=== PATIENT | male | born 1940 ===

== ENCOUNTER 2018-09-21 07:52 | Outpatient (CLI) | payer OTHER | END 2018-09-21 08:02 | disposition home or self-care (01) | LOC: EKG 07:52 | DX: I10 Essential (primary) hypertension (principal) ==

== ENCOUNTER 2018-09-21 12:15 | Inpatient (IN) | payer OTHER ==
[~2018-09-21] VITALS: Ht 175.3 cm; Wt 95.3 kg
[2018-09-27] MEDS ORDERED: ADULT LOW DOSE81 M1 PO (10:17)
[2018-09-27] MEDS ORDERED: AVAPRO300 MG PO (10:17)
[2018-09-27] MEDS ORDERED: LOTREL 5-40 MG1 EACH PO (10:18)
== END 2018-09-29 11:53 | DRG 470 ==
LOC: EDUNIT# 12:15 → O/R 09-26 05:50 → SURG 09-26 05:50 → SURH 09-26 07:00 → SURG 09-26 11:20 → SURH 09-26 12:15 → SURG 09-28 16:01
PROVIDERS: ADMIT Orthopaedic Surgery
PROC: 0SRD0J9 Replacement of Left Knee Joint with Synthetic Substitute, Cemented, Open Approach (ICD-10-PCS; principal; 2018-09-26 07:00)
DX: M17.12 Unilateral primary osteoarthritis, left knee (principal); D62 Acute posthemorrhagic anemia; M85.462 Solitary bone cyst, left tibia and fibula; I12.9 Hypertensive chronic kidney disease with stage 1 through stage 4 chronic kidney disease, or unspecified chronic kidney disease; N18.3 Chronic kidney disease, stage 3 (moderate)

== ENCOUNTER 2018-09-30 22:23 | Inpatient (IN) | payer OTHER ==
[~2018-09-30] VITALS: Ht 175.3 cm; Wt 95.3 kg
[~2018-09-30 22:23] MED LIST: ADULT LOW DOSE81 M1 PO; AVAPRO300 MG PO; LOTREL 5-40 MG1 EACH PO
--- NOTE | 2018-09-30 22:37 | NUR ---
PTE SE RECIBE POR COLD SYMPTOMS TOS CONGESTION SANAL Y FIEBRE.
--- NOTE | 2018-09-30 23:47 | NUR ---
PACIENTE ALERTA Y ORIENTADO X3 Y CON BUEN PATRON RESPIRATORIO SE ABRE VENA EN BRAZO DERECHO PATENTE Y NOA DE EDEMA CON ANGIO #20 SE COLOCA A BAJAR UN 0.9NSS AT 80ML/HR Y SE ADMINISTRA ROCEPHIN 1G. SE DIONI MUESTRAS BAJO MEDIDAS ASEPTICAS CBC, BMP, UA Y ABG'S. SE EDITH TRANQUILO EN CAMA, CON BARANDAS ELEVADAS Y FRENOS COLOCADOS.
--- NOTE | 2018-10-01 07:24 | NUR ---
SE RECIBE PACIENTE ALERTA Y ORIENTADO EN CAMA CON BARRANDAS ELEVADA POR MOREIRA SEGURIDAD. PACIENTE CON VENOPUNCION PATENTE NOA DE EDEMA Y ERRITEMA CON .9 NSS BAJANDO A 80 ML/HR. PACIENTE CON VENTURY MASK AL 35%. PCIENTE EN ESPERA DE CONSULTA CON EL DR. WATSON. SE EDITH A PACIENTE EN CAMA BAJO OBSERVACION POR CAMBIOS EN MOREIRA CONDICION.
[2018-10-01] MEDS ORDERED: LANTUS SOL100 UNIT/1 (09:47)
[2018-10-01] MEDS ORDERED: HUMALOG100 UNIT/1 (09:47)
[2018-10-01] MEDS ORDERED: LOTREL 5-40 MG1 EACH (09:48)
[2018-10-01] MEDS ORDERED: AVAPRO300 MG (09:48)
[2018-10-01] MEDS ORDERED: INDAPAMIDE2.5 MG (09:49)
[2018-10-01] MEDS ORDERED: DITROPAN XL5 MG (09:49)
[2018-10-01] MEDS ORDERED: CARDURA XL4 MG (09:49)
[2018-10-01] MEDS ORDERED: ELIQUIS2.5 MG (09:50)
[2018-10-17] MEDS ORDERED: CARVEDILOL12.5 MG (22:39)
[2018-10-17] MEDS ORDERED: XARELTO15 MG (22:39)
== END 2018-10-17 15:17 | disposition designated cancer center or children's hospital (05) | DRG 190 ==
LOC: ER 22:23 → SURG 10-01 11:25 → ICU 10-04 03:03 → MEDI 10-13 17:43
PROVIDERS: ADMIT Internal Medicine Cardiovascular Disease
PROC: BW24ZZZ Computerized Tomography (CT Scan) of Chest and Abdomen (ICD-10-PCS; principal; 2018-10-01)
PROC: 3E0F7GC Introduction of Other Therapeutic Substance into Respiratory Tract, Via Natural or Artificial Opening (ICD-10-PCS; 2018-10-01)
PROC: 4A033R1 Measurement of Arterial Saturation, Peripheral, Percutaneous Approach (ICD-10-PCS; 2018-10-02)
PROC: B246ZZZ Ultrasonography of Right and Left Heart (ICD-10-PCS; 2018-10-05)
PROC: 0T9B70Z Drainage of Bladder with Drainage Device, Via Natural or Artificial Opening (ICD-10-PCS; 2018-10-05)
PROC: 30233N1 Transfusion of Nonautologous Red Blood Cells into Peripheral Vein, Percutaneous Approach (ICD-10-PCS; 2018-10-06)
PROC: 4A12X4Z Monitoring of Cardiac Electrical Activity, External Approach (ICD-10-PCS; 2018-10-15)
DX: J44.1 Chronic obstructive pulmonary disease with (acute) exacerbation (principal); J80 Acute respiratory distress syndrome; J16.8 Pneumonia due to other specified infectious organisms; D62 Acute posthemorrhagic anemia; B37.41 Candidal cystitis and urethritis; J21.8 Acute bronchiolitis due to other specified organisms; N17.9 Acute kidney failure, unspecified; N17.8 Other acute kidney failure; M17.12 Unilateral primary osteoarthritis, left knee; D63.1 Anemia in chronic kidney disease; E11.22 Type 2 diabetes mellitus with diabetic chronic kidney disease; E11.65 Type 2 diabetes mellitus with hyperglycemia; I12.9 Hypertensive chronic kidney disease with stage 1 through stage 4 chronic kidney disease, or unspecified chronic kidney disease; N18.3 Chronic kidney disease, stage 3 (moderate); Z79.4 Long term (current) use of insulin; Z96.652 Presence of left artificial knee joint; R50.82 Postprocedural fever; I48.2 Chronic atrial fibrillation; Z79.01 Long term (current) use of anticoagulants; I35.0 Nonrheumatic aortic (valve) stenosis; I16.0 Hypertensive urgency; F32.89 Other specified depressive episodes; F41.8 Other specified anxiety disorders; N28.1 Cyst of kidney, acquired

== ENCOUNTER 2018-10-17 22:28 | Inpatient (IN) | payer OTHER ==
[~2018-10-17] VITALS: Ht 172.7 cm; Wt 97.5 kg
[~2018-10-17 22:28] MED LIST changes: +AVAPRO300 MG; +CARDURA XL4 MG; +DITROPAN XL5 MG; +ELIQUIS2.5 MG; +HUMALOG100 UNIT/1; +INDAPAMIDE2.5 MG; +LANTUS SOL100 UNIT/1; +LOTREL 5-40 MG1 EACH
--- NOTE | 2018-10-17 22:35 | NUR ---
PTE SE RECIBE POR DIFICULDAD RESPIRATORIO REFIERE PARAMEDICO Y PTE.
[2018-10-17] MEDS ORDERED: XARELTO15 MG (22:39)
[2018-10-17] MEDS ORDERED: CARVEDILOL12.5 MG (22:39)
--- NOTE | 2018-10-18 01:00 | NUR ---
SE RECIBE PACIENTE EN LA UNIDAD DE DOLOR PECHO ALERTA Y ORIENTADO X3, SE COLOCA EN CAMA CON BARANDAS ELEVADAS Y CABEZERA A 45 GRADOS, SE CONECTA A MONITOR CARDIACO CON OXIMETRIA. SE COLOCA TRIDIL 50MG/250ML RUN 1 ML/HR Y VMASK AL 50%. SE ORIENTA A LOS FAMILIARES SOBRE TRATAMIENTO MEDICO Y NORMAS DE LA UNIDAD LOS MISMO REFIEREN ENTENDER. SE MANTIENE PACIENTE BAJO OBSERVACION CONTINUA.
--- NOTE | 2018-10-18 06:43 | NUR ---
PACIENTE RECIBE VISITA DE DR. WATSON, EL MISMO ORDENA D/C TRIDIL Y COLOCAR CANULA NASAL A 3 LITROS. SE EJECUTA ORDEN MEDICA. PACIENTE ESTABLE SE MANTIENE BAJO OBSERVACION.
--- NOTE | 2018-10-18 08:19 | NUR ---
SE RECIBE PTE DEL TURNO ANTERIOR EN CAMA CON BARANDAS ELEVADAS CON IVFS PATENTE HEP LOCK, CONECTADO A MONITOR CARDIACO, ALERTA. SE LE OBSERVAN AMBAS EXTREMIDADES SUPERIORES ,INFERIORES EDEMATOSA CANULA DE OXIGENO A 2LITS. SE MANTIENE EN OBSERVACION Y PENDIENTE A CONSULTA CON .
--- NOTE | 2018-10-18 15:14 | NUR ---
SE RECIBE PACIENTE ALERTA Y ORIENTADO EN CAMA CON BARRANDAS ELEVADAS POR MOREIRA SEGURIDAD. CONECTADO A MONITOR CARDIACO Y OXIMETRIA DE PULSO. PACIENTE CON VENOPUNCION PATENTE NOA DE EDEMA Y ERRITEMA. PACIENTE CON EDEMA EN EXTREMIDADES, PACIENTE CON EXTREMIDADES SUPERIORES SUPURANDO AGUA. PACIENTE CON CANULA NASAL A 3L/RODERICK. SE DIONI SIGNOS VITALES ESTABLES AL MOMENTO SE EDITH A APCIENTE EN CAMA BAJO OBSERVACION POR CAMBIOS EN MOREIRA CONDICION.
--- NOTE | 2018-10-18 16:21 | NUR ---
PACIENTE ALERTA Y ORIENTADO SE VERIFICAN ORDENEES MEDICAS, SE COLOCA VENTURY MASK AL 50% A PACIENTE. SE LE ASITE PARA QUE ORINEY SE BENNIE COMODIDAD A PACIENTE. SE EDITH PACIENTE EN CAMA BAJO OBSERVACION POR CAMBIOS EN MOREIRA CONDICION.
--- NOTE | 2018-10-18 18:18 | NUR ---
5:00PM PACIENTE ALERTA Y ORIENTADO SE ORIENTA SOBRE TRATAMEINTO MEDICO SE ADMISNITRAN MEDICAMENTOS HUNG ORDEN MEDICA BAJO MEDIDAS ASEPTICAS. SE REALIZA DXT 250 MG/DL. SE ASISTE A PACIENTE A INGERIR ALIMENTOS SE LE DA COMIDA, PACIENTE TOLERA ALIMENTO. SE BENNIE COMODIDAD A PACIENTE SE EDITH EN CAMA BAJO OSBERVACION POR CAMBIOS EN MOREIRA CONDICION. \ SE LE ADMISNITRA INSULINA HUMALOG 6 UNIDADES.
== END 2018-11-23 09:17 | disposition home or self-care (01) | DRG 291 ==
LOC: ER 22:28 → MEDJ 10-18 18:38 → SEC-K 10-18 18:38 → MEDI 10-18 21:54 → MEDJ 10-18 21:54
PROVIDERS: Radiology Vascular & Interventional Radiology; ADMIT Internal Medicine Cardiovascular Disease
PROC: 4A12X4Z Monitoring of Cardiac Electrical Activity, External Approach (ICD-10-PCS; 2018-10-18)
PROC: 3E0F7GC Introduction of Other Therapeutic Substance into Respiratory Tract, Via Natural or Artificial Opening (ICD-10-PCS; 2018-10-18)
PROC: 4A033R1 Measurement of Arterial Saturation, Peripheral, Percutaneous Approach (ICD-10-PCS; 2018-10-18)
PROC: BW41ZZZ Ultrasonography of Abdomen and Pelvis (ICD-10-PCS; 2018-10-19)
PROC: B246ZZZ Ultrasonography of Right and Left Heart (ICD-10-PCS; 2018-10-19)
PROC: CB121ZZ Planar Nuclear Medicine Imaging of Lungs and Bronchi using Technetium 99m (Tc-99m) (ICD-10-PCS; 2018-10-19)
PROC: BW4GZZZ Ultrasonography of Pelvic Region (ICD-10-PCS; 2018-11-14)
PROC: B513ZZA Fluoroscopy of Right Jugular Veins, Guidance (ICD-10-PCS; 2018-11-17)
PROC: 05HM33Z Insertion of Infusion Device into Right Internal Jugular Vein, Percutaneous Approach (ICD-10-PCS; principal; 2018-11-17 19:00)
PROC: BW21ZZZ Computerized Tomography (CT Scan) of Abdomen and Pelvis (ICD-10-PCS; 2018-11-18)
PROC: 5A1D70Z Performance of Urinary Filtration, Intermittent, Less than 6 Hours Per Day (ICD-10-PCS; 2018-11-18)
PROC: 30233N1 Transfusion of Nonautologous Red Blood Cells into Peripheral Vein, Percutaneous Approach (ICD-10-PCS; 2018-11-20)
DX: I13.0 Hypertensive heart and chronic kidney disease with heart failure and stage 1 through stage 4 chronic kidney disease, or unspecified chronic kidney disease (principal); I50.33 Acute on chronic diastolic (congestive) heart failure; J16.8 Pneumonia due to other specified infectious organisms; N17.8 Other acute kidney failure; D62 Acute posthemorrhagic anemia; F33.0 Major depressive disorder, recurrent, mild; N39.0 Urinary tract infection, site not specified; B37.49 Other urogenital candidiasis; N04.9 Nephrotic syndrome with unspecified morphologic changes; N18.3 Chronic kidney disease, stage 3 (moderate); D63.1 Anemia in chronic kidney disease; I48.0 Paroxysmal atrial fibrillation; I35.0 Nonrheumatic aortic (valve) stenosis; F43.22 Adjustment disorder with anxiety; Z74.01 Bed confinement status; B96.5 Pseudomonas (aeruginosa) (mallei) (pseudomallei) as the cause of diseases classified elsewhere; Z96.642 Presence of left artificial hip joint; R09.02 Hypoxemia; F06.31 Mood disorder due to known physiological condition with depressive features; N41.8 Other inflammatory diseases of prostate; E88.09 Other disorders of plasma-protein metabolism, not elsewhere classified; N40.0 Benign prostatic hyperplasia without lower urinary tract symptoms; E11.9 Type 2 diabetes mellitus without complications; M62.58 Muscle wasting and atrophy, not elsewhere classified, other site; L89.150 Pressure ulcer of sacral region, unstageable